=== PATIENT | male | born 1965 | race African-American/Black ===

== ENCOUNTER → 2016-07-30 | Outpatient (CLI) | payer BC ==
[~2016-07-30] MED LIST: ALPR0.2550 PO; AMLO10TA82; AMLO10TA82 PO; AMLODIPINE; ASPI81TA16 PO; ATEN25TA PO; CYCL10TA9 PO; ENAL20TA PO; ENALAPRIL; ESCI20TA2 PO; ESCI20TA38 PO; ESCT10T PO; FIO; FIORINAL PO; HCT25T; HCT25T PO; HCTZ; HYDR-3812 PO; HYDR-757 PO; MULT-974 PO; NAPR500T PO; OMEP20CA6 PO; PRAV10TA23 PO; PRAV20TA3 PO; PRD20T PO; RANI-10 PO; RANI-515 PO; SUMA50TA2 PO; TRAM-21 PO; TRAZ150T42 PO; VALS40TA8 PO
--- OUTSIDE RECORDS SUMMARY | 2016-07-30 08:16 | XMS REPORT | Continuity of Care Document ---
Author Author [facility] Organization [facility] Address Unknown Phone Unavailable Care Team Providers Care Lens Mold Setter Name Role Phone PCP Unavailable Source Comments Some departments are not documenting in the electronic medical record. If you do not see the information that you expected, contact Release of Information in the Health Information Management department at [phone] for further assistance in locating additional records.[facility] Active Allergies and Adverse Reactions Not on File Current Medications Not on file Active Problems Not on file Social History Tobacco Use Types Packs/Day Years Used Date Never Assessed Plan of Care Health Maintenance Due Date Last Done Comments Physical (Comprehensive) 12/26/1971 Exam Pertussis Vaccine 12/26/1975 Tetanus Vaccine 1981 Colorectal Cancer 2014 Screening Influenza Vaccine 03/25/2016 Results from Last 3 Months Not on file
[2016-07-30 08:36] LABS: MEAN PLATELET VOLUME 10.8 FL (7.4-10.4); RED BLOOD COUNT 4.93 10^6/uL (4.35-5.85); RED CELL DISTRIBUTION WIDTH 14.9 % (10.0-14.5); WHITE BLOOD COUNT 4.1 10^3/uL (4.3-11.0)
[2016-07-30 09:01] LABS: ALANINE AMINOTRANSFERASE 42 U/L (0-55); ANION GAP 10 MMOL/L (5-14); ASPARTATE AMINO TRANSFERASE 30 U/L (5-34); BILIRUBIN,TOTAL 0.4 MG/DL (0.1-1.0); BLOOD UREA NITROGEN 15 MG/DL (7-18); BUN/CREATININE RATIO 12; CALCIUM 8.8 MG/DL (8.5-10.1); CARBON DIOXIDE 25 MMOL/L (21-32); CHLORIDE 102 MMOL/L (98-107); CHOLESTEROL 180 MG/DL (< 200); CREATININE SERUM 1.29 MG/DL (0.60-1.30); DIRECT LDL 109 MG/DL (1-129); GFR ESTIMATED > 60; GLUCOSE 93 MG/DL (70-105); POTASSIUM 3.3 MMOL/L (3.6-5.0); SODIUM 137 MMOL/L (135-145); TRIGLYCERIDES 142 MG/DL (<150); VLDL CHOLESTEROL 28 MG/DL (5-40)
[2016-07-30 09:20] LABS: THYROID STIMULATING HORMONE 4.01 UIU/ML (0.35-4.94)
== END ==
LOC: LAB 08:12
PROVIDERS: ATTEND Nurse Practitioner Family
DX: R53.83 Other fatigue (principal); E78.5 Hyperlipidemia, unspecified; E29.1 Testicular hypofunction
CPT/HCPCS: 36415; 80053; 80061; 84403; 84443; 85027

== ENCOUNTER → 2016-12-30 | Outpatient (CLI) | payer BC ==
--- NOTE | 2016-12-30 18:59 | Diagnostic Imaging Report ---
EXAMINATION: Scrotal ultrasound. INDICATION: Left scrotal lump. FINDINGS: The right testicle is 3.5 x 1.8 x 2.3 cm. The left testicle is 2.7 x 1.6 x 2.3 cm. The testicles are fairly homogeneous with no focal lesion. Arterial and venous waveforms are demonstrated in both testicles. The right epididymis demonstrates a simple appearing 6 mm cyst. No solid mass in the scrotum is seen. No fluid collection, hydrocele or malignancy is identified. IMPRESSION: No significant abnormality. Dictated by: Dictated on workstation # [id number]
== END ==
LOC: RAD 14:44
DX: N45.1 Epididymitis (principal)
CPT/HCPCS: 76870

== ENCOUNTER → 2017-03-23 | Outpatient (CLI) | payer BC ==
--- NOTE | 2017-03-23 15:33 | Diagnostic Imaging Report ---
INDICATION: Testicular swelling since January. TECHNIQUE: Grayscale imaging of the scrotum was performed. Color Doppler velocity and spectral waveform analysis of the scrotal vessels was performed. FINDINGS: Both testes measure approximately 2.5 x 3.5 cm. They are homogeneous in appearance. There is a 6 mm cyst in the head of the epididymis on the right. No other mass is seen. There is a moderate sized hydrocele on the left. There is normal color Doppler flow and velocities with no evidence of hyperemia or torsion. IMPRESSION: There is a small simple cyst in the head of the epididymis on the left. There is a hydrocele on the left. The exam is similar to the prior study from 12/30/2016. Dictated by: Dictated on workstation # [id number]
== END ==
LOC: RAD 12:58
PROVIDERS: ATTEND Nurse Practitioner Family
DX: N50.3 Cyst of epididymis (principal); N43.3 Hydrocele, unspecified
CPT/HCPCS: 76870

== ENCOUNTER → 2017-05-03 | Outpatient (CLI) | payer BC ==
[~2017-05-03] VITALS: Ht 160 cm; Wt 97.5 kg
[~2017-05-03] MED LIST changes: +CATHETER FLUSH 10 ML SYR IV PRN; +REGADENOSON 0.4 MG/5 ML SYR (LEXISCAN) IV ONE
[2017-05-03 09:43] VITALS: BP 142/87
[2017-05-03 09:47] VITALS: BP 147/88
[2017-05-03 09:48] VITALS: BP 151/90
--- NOTE | 2017-05-04 08:03 | STRESS TEST ---
DATE OF SERVICE: 05/03/2017 PROCEDURE: Resting and post regadenoson technetium-99m Tetrofosmin SPECT CT imaging. ORDERING PHYSICIAN: Dr. Canales. PRIMARY PHYSICIAN: Dr. Tobin. CLINICAL DIAGNOSES: Fatigue, abnormal electrocardiogram, hyperlipidemia, hypertension, left ventricular hypertrophy. DESCRIPTION: Baseline images were carried out after injection of 10.33 mCi technetium-99m of Tetrofosmin. This was followed by 0.4 mg regadenoson and 29 mCi technetium-99m Tetrofosmin for stress imaging. The electrocardiogram showed sinus rhythm at baseline. There was nonspecific ST and T-wave abnormality at baseline. The electrocardiogram did not change significantly with the regadenoson infusion. The patient had some stomach discomfort following regadenoson infusion, which resolved in a few minutes. Overall, he tolerated the procedure well. Review of images at rest and following stress does not indicate any significant perfusion defects consistent with significant myocardial ischemia or infarction. Gated images show normal global left ventricular systolic function with normal regional wall motion. Left ventricular ejection fraction is calculated to be 72%. Left ventricular end diastolic volume is 60 mL. TID is absent (0.99). CONCLUSIONS: 1. No evidence of any significant myocardial ischemia or infarction on this study. 2. Normal regional wall motion. 3. Normal global left ventricular systolic function with a calculated ejection fraction of 72%. Job ID: [id number] DocumentID: [id number] Dictated Date: 05/03/2017 16:50:41 Corporate Development Intern Date: 05/04/2017 00:58:57 Dictated By: BIANCA CANALES MD, MA, FACP, FACC,
== END ==
LOC: CARD 08:16
PROVIDERS: ATTEND Internal Medicine Cardiovascular Disease
DX: E78.4 Other hyperlipidemia (principal); R53.83 Other fatigue; I11.0 Hypertensive heart disease with heart failure; I51.7 Cardiomegaly; R94.31 Abnormal electrocardiogram [ECG] [EKG]
CPT/HCPCS: 78452; 93017

== ENCOUNTER → 2017-05-16 | Outpatient (CLI) | payer BC ==
[~2017-05-16] MED LIST changes: -CATHETER FLUSH 10 ML SYR IV PRN; -REGADENOSON 0.4 MG/5 ML SYR (LEXISCAN) IV ONE
[2017-05-16 10:08] LABS: BASOPHILS % (AUTO) 1 % (0-10); EOSINOPHILS # (AUTO) 0.3 10^3/uL (0.0-0.3); EOSINOPHILS % (AUTO) 6 % (0-10); LYMPHOCYTES # (AUTO) 1.7 X 10^3 (1.0-4.0); LYMPHOCYTES % (AUTO) 40 % (12-44); MEAN CORPUSCULAR HEMOGLOBIN 25 PG (25-34); MEAN CORPUSCULAR HGB CONC 33 G/DL (32-36); MEAN CORPUSCULAR VOLUME 76 FL (80-99); MEAN PLATELET VOLUME 10.6 FL (7.4-10.4); MONOCYTES # (AUTO) 0.4 X 10^3 (0.0-1.0); MONOCYTES % (AUTO) 9 % (0-12); NEUTROPHILS % (AUTO) 45 % (42-75); PLATELET COUNT 210 10^3/uL (130-400); RED BLOOD COUNT 4.96 10^6/uL (4.35-5.85); RED CELL DISTRIBUTION WIDTH 14.9 % (10.0-14.5); WHITE BLOOD COUNT 4.4 10^3/uL (4.3-11.0)
[2017-05-16 10:32] LABS: ALANINE AMINOTRANSFERASE 24 U/L (0-55); ANION GAP 5 MMOL/L (5-14); ASPARTATE AMINO TRANSFERASE 28 U/L (5-34); BILIRUBIN,TOTAL 0.5 MG/DL (0.1-1.0); BLOOD UREA NITROGEN 11 MG/DL (7-18); BUN/CREATININE RATIO 9; CALCIUM 8.6 MG/DL (8.5-10.1); CARBON DIOXIDE 27 MMOL/L (21-32); CHLORIDE 106 MMOL/L (98-107); CHOLESTEROL 165 MG/DL (< 200); CREATININE SERUM 1.19 MG/DL (0.60-1.30); DIRECT LDL 99 MG/DL (1-129); GFR ESTIMATED > 60; GLUCOSE 83 MG/DL (70-105); MAGNESIUM 1.8 MG/DL (1.8-2.4); POTASSIUM 3.7 MMOL/L (3.6-5.0); SODIUM 138 MMOL/L (135-145); TOTAL PROTEIN 7.4 GM/DL (6.4-8.2); TRIGLYCERIDES 111 MG/DL (<150); VLDL CHOLESTEROL 22 MG/DL (5-40)
[2017-05-16 10:50] LABS: ERYTHROCYTE SEDIMENTATION RATE 8 MM/HR (0-30)
[2017-05-16 10:51] LABS: THYROID STIMULATING HORMONE 1.34 UIU/ML (0.35-4.94)
== END ==
LOC: LAB 09:41
PROVIDERS: ATTEND Internal Medicine Cardiovascular Disease
DX: R53.83 Other fatigue (principal); E78.4 Other hyperlipidemia; R94.31 Abnormal electrocardiogram [ECG] [EKG]; I11.9 Hypertensive heart disease without heart failure
CPT/HCPCS: 36415; 80053; 80061; 83735; 84443; 85025; 85652

== ENCOUNTER → 2017-05-17 | Outpatient (CLI) | payer BC | LOC: CARD 11:55 | PROVIDERS: ATTEND Internal Medicine Cardiovascular Disease | DX: E78.4 Other hyperlipidemia (principal); I11.0 Hypertensive heart disease with heart failure; I51.7 Cardiomegaly; R53.83 Other fatigue; R94.31 Abnormal electrocardiogram [ECG] [EKG] | CPT/HCPCS: 93306 ==

== ENCOUNTER 2017-11-29 08:40 | Day surgery (SDC) | payer BC, OTHER ==
[2017-11-29] VITALS (10 sets, daily range): BP systolic 117–166; BP diastolic 75–89
[~2017-11-29] VITALS: Ht 160 cm; Wt 83.9 kg
[~2017-11-29 08:40] MED LIST changes: +ACHD5005 PO; -HYDR-3812 PO; +NAPR-1071 PO; -NAPR500T PO
--- OUTSIDE RECORDS SUMMARY | 2017-11-29 08:45 | XMS REPORT | Continuity of Care Document ---
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 MALIGNANT NE 11/23/2017 RICKEY OCAMPO TOLL TESTBOARD WORKER Ot E29.1 TESTICULAR HYPOFUNCTION 11/23/2017 OCAMPO, ASHDEN N TOLL TESTBOARD WORKER Ot E78.5 HYPERLIPIDEMIA, UNSPECIFIED 11/23/2017 RICKEY OCAMPO TOLL TESTBOARD WORKER Ot R53.83 OTHER FATIGUE 11/23/2017 OSIRIS SOTOMAYOR, LAURIE Maki Ot N45.1 EPIDIDYMITIS 11/23/2017 ABE PALUMBOSARA Maki TOLL TESTBOARD WORKER Ot N43.3 HYDROCELE, UNSPECIFIED 11/23/2017 TERESA PALUMBO Glynn TOLL TESTBOARD WORKER Ot N50.3 CYST OF EPIDIDYMIS 11/23/2017 DEX SOTOMAYOR FACC, ALI FACP CCDS Ot E78.4 OTHER HYPERLIPIDEMIA 11/23/2017 DEX ORNELASC, ALI FACP CCDS Ot I11.0 HYPERTENSIVE HEART DISEASE WITH HEART FA 11/23/2017 DEX SOTOMAYOR FACC, ALI FACP CCDS Ot I51.7 CARDIOMEGALY 11/23/2017 DEX SOTOMAYOR FACC, ALI FACP CCDS Ot R53.83 OTHER FATIGUE 11/23/2017 DEX ORNELASC, ALI FACP CCDS Ot R94.31 ABNORMAL ELECTROCARDIOGRAM [ECG] [EKG] 11/23/2017 DEX SOTOMAYOR FACC, ALI FACP CCDS Ot E78.4 OTHER HYPERLIPIDEMIA 11/23/2017 DEX SOTOMAYOR FACC, ALI FACP CCDS Ot I11.0 HYPERTENSIVE HEART DISEASE WITH HEART FA 11/23/2017 DEX SOTOMAYOR FACC, ALI FACP CCDS Ot I51.7 CARDIOMEGALY 11/23/2017 DEX SOTOMAYOR FACC, ALI FACP CCDS Ot R53.83 OTHER FATIGUE 11/23/2017 DEX ORNELASC, ALI FACP CCDS Ot R94.31 ABNORMAL ELECTROCARDIOGRAM [ECG] [EKG] 11/23/2017 DEX SOTOMAYOR FACC, ALI FACP CCDS Ot E78.4 OTHER HYPERLIPIDEMIA 11/23/2017 DEX SOTOMAYOR FACC, ALI FACP CCDS Ot I11.9 HYPERTENSIVE HEART DISEASE WITHOUT HEART 11/23/2017 DEX STOOMAYOR FACC, ALI FACP CCDS Ot R53.83 OTHER FATIGUE 11/23/2017 DEX SOTOMAYOR FACC, ALI FACP CCDS Ot R94.31 ABNORMAL ELECTROCARDIOGRAM [ECG] [EKG] 11/23/2017 DEX SOTOMAYOR FACC, ALI FACP CCDS Ot 272.4 HYPERLIPIDEMIA NEC/NOS 11/23/2017 DEX ORNELASC, ALI FACP CCDS Ot 401.9 HYPERTENSION NOS 11/23/2017 DEX ORNELASC, ALI FACP CCDS Ot 429.3 CARDIOMEGALY 11/23/2017 DEX SOTOMAYOR FACNico, ALI FACP CCDS Ot 530.81 ESOPHAGEAL REFLUX 11/23/2017 DEX SOTOMAYOR FACC, ALI FACP CCDS Ot 780.4 DIZZINESS AND GIDDINESS 11/23/2017 DEX SOTOMAYOR FACNico, ALI FACP CCDS Ot 780.79 OTH MALAISE FATIGUE 11/23/2017 DEX SOTOMAYOR FACNico, ALI FACP CCDS Ot 786.05 SHORTNESS OF BREATH 11/23/2017 DEX SOTOMAYOR FACNico, ALI FACP CCDS Ot 786.50 CHEST PAIN NOS 11/23/2017 LAURIE NEWELL MD Ot 786.50 CHEST PAIN NOS 11/23/2017 LAURIE NEWELL MD Ot 401.1 BENIGN HYPERTENSION 11/23/2017 LAURIE NEWELL MD Ot 593.2 CYST OF KIDNEY, ACQUIRED 11/23/2017 LAURIE NEWELL MD Ot 780.4 DIZZINESS AND GIDDINESS 11/23/2017 LAURIE NEWELL MD Ot 784.0 HEADACHE 11/23/2017 VALENTIN GOTTI MD Ot Z01.818 ENCOUNTER FOR OTHER PREPROCEDURAL EXAMIN 11/23/2017 VALENTIN GOTTI MD Ot Z12.11 ENCOUNTER FOR SCREENING FOR MALIGNANT NE 11/23/2017 RICKEY OCAMPO TOLL TESTBOARD WORKER Ot E29.1 TESTICULAR HYPOFUNCTION 11/23/2017 RICKEY OCAMPO TOLL TESTBOARD WORKER Ot E78.5 HYPERLIPIDEMIA, UNSPECIFIED 11/23/2017 RICKEY OCAMPO TOLL TESTBOARD WORKER Ot R53.83 OTHER FATIGUE 11/23/2017 LAURIE NEWELL MD Ot N45.1 EPIDIDYMITIS 11/23/2017 TERESA PALUMBO TOLL TESTBOARD WORKER Ot N43.3 HYDROCELE, UNSPECIFIED 11/23/2017 TERESA PALUMBO TOLL TESTBOARD WORKER Ot N50.3 CYST OF EPIDIDYMIS 11/23/2017 DEX SOTOMAYOR FACC, BIANCA FACP CCDS Ot E78.4 OTHER HYPERLIPIDEMIA 11/23/2017 DEX SOTOMAYOR FACC, ALI FACP CCDS Ot I11.0 HYPERTENSIVE HEART DISEASE WITH HEART FA 11/23/2017 DEX SOTOMAYOR FACC, ALI FACP CCDS Ot I51.7 CARDIOMEGALY 11/23/2017 DEX SOTOMAYOR FACC, ALI FACP CCDS Ot R53.83 OTHER FATIGUE 11/23/2017 DEX MD FACC, ALI FACP CCDS Ot R94.31 ABNORMAL ELECTROCARDIOGRAM [ECG] [EKG] 11/23/2017 DEX MD FACC, ALI FACP CCDS Ot E78.4 OTHER HYPERLIPIDEMIA 11/23/2017 DEX MD FACC, ALI FACP CCDS Ot I11.0 HYPERTENSIVE HEART DISEASE WITH HEART FA 11/23/2017 DEX MD FACC, ALI FACP CCDS Ot I51.7 CARDIOMEGALY 11/23/2017 EDX MD FACC, ALI FACP CCDS Ot R53.83 OTHER FATIGUE 11/23/2017 DEX MD FACC, ALI FACP CCDS Ot R94.31 ABNORMAL ELECTROCARDIOGRAM [ECG] [EKG] 11/23/2017 DEX MD FACC, ALI FACP CCDS Ot E78.4 OTHER HYPERLIPIDEMIA 11/23/2017 DEX MD FACC, ALI FACP CCDS Ot I11.9 HYPERTENSIVE HEART DISEASE WITHOUT HEART 11/23/[address] [facility], ALI FACP CCDS Ot R53.83 OTHER FATIGUE 11/23/2017 DEX MD FACC, ALI FACP CCDS Ot R94.31 ABNORMAL ELECTROCARDIOGRAM [ECG] [EKG] Procedures There is no data. Results Test Result Range Automated blood complete blood count (hemogram) panel - 07/30/16 08:25 Blood leukocytes automated count (number/volume) 4.1 10*3/uL 4.3-11.0 Blood erythrocytes automated count (number/volume) 4.93 10*6/uL 4.35-5.85 Venous blood hemoglobin measurement (mass/volume) 12.3 g/dL 13.3-17.7 Blood hematocrit (volume fraction) 38 % 40-54 Automated erythrocyte mean corpuscular volume 76 [foz_us] 80-99 Automated erythrocyte mean corpuscular hemoglobin (mass per erythrocyte) 25 pg 25-34 Automated erythrocyte mean corpuscular hemoglobin concentration measurement ( mass/volume) 33 g/dL 32-36 Automated erythrocyte distribution width ratio 14.9 % 10.0-14.5 Automated blood platelet count (count/volume) 227 10*3/uL 130-400 Automated blood platelet mean volume measurement 10.8 [foz_us] 7.4-10.4 Comprehensive metabolic panel - 07/30/16 08:25 Serum or plasma sodium measurement (moles/volume) 137 mmol/L 135-145 Serum or plasma potassium measurement (moles/volume) 3.3 mmol/L 3.6-5.0 Serum or plasma chloride measurement (moles/volume) 102 mmol/L 98-107 Carbon dioxide 25 mmol/L 21-32 Serum or plasma anion gap determination (moles/volume) 10 mmol/L 5-14 Serum or plasma urea nitrogen measurement (mass/volume) 15 mg/dL 7-18 Serum or plasma creatinine measurement (mass/volume) 1.29 mg/dL 0.60-1.30 Serum or plasma urea nitrogen/creatinine mass ratio 12 NRG Serum or plasma creatinine measurement with calculation of estimated glomerular filtration rate > NRG Serum or plasma glucose measurement (mass/volume) 93 mg/dL 70-105 Serum or plasma calcium measurement (mass/volume) 8.8 mg/dL 8.5-10.1 Serum or plasma total bilirubin measurement (mass/volume) 0.4 mg/dL 0.1-1.0 Serum or plasma alkaline phosphatase measurement (enzymatic activity/volume) 61 U/L 40-136 Serum or plasma aspartate aminotransferase measurement (enzymatic activity/ volume) 30 U/L 5-34 Serum or plasma alanine aminotransferase measurement (enzymatic activity/volume ) 42 U/L 0-55 Serum or plasma protein measurement (mass/volume) 7.0 g/dL 6.4-8.2 Serum or plasma albumin measurement (mass/volume) 4.0 g/dL 3.2-4.5 Lipid 1996 panel - 07/30/16 08:25 Serum or plasma triglyceride measurement (mass/volume) 142 mg/dL <150 Serum or plasma cholesterol measurement (mass/volume) 180 mg/dL < 200 Serum or plasma cholesterol in HDL measurement (mass/volume) 39 mg/ dL 40-60 Cholesterol in LDL [mass/volume] in serum or plasma by direct assay 109 mg/dL 1-129 Serum or plasma cholesterol in VLDL measurement (mass/volume) 28 mg/ dL 5-40 THYROID STIMULATING HORMONE - 07/30/16 08:25 THYROID STIMULATING HORMONE 4.01 u[iU]/mL 0.35-4.94 Serum or plasma testosterone measurement (mass/volume) - 07/30/16 08:25 Testosterone [mass or moles/volume] in serum or plasma 266 % 241-827 Encounters ACCT No. Visit Date/Time Discharge Status Pt. Type Provider Facility Loc./Unit Complaint [id number] 05/17/2017 11:55:00 05/17/2017 23:59:59 CLS Outpatient DEX SOTOMAYOR FACC, BIANCA FOSTER CCDS [facility] CARD R53.83, I51.7 , E78.4, E10, R94.31 [id number] 05/16/2017 09:41:00 05/16/2017 23:59:59 CLS Outpatient DEX SOTOMAYOR FACC, BIANCA FOSTER CCDS [facility] LAB R53.83 I51.7 E78.4 I10 R94.31 [id number] 05/03/2017 08:16:00 05/03/2017 23:59:59 CLS Outpatient BIANCA KOWALSKI MD, FACC, FACP CCDS [facility] CARD FATIGUE [id number] 03/23/2017 12:58:00 03/23/2017 23:59:59 CLS Outpatient TERESA PALUMBO TOLL TESTBOARD WORKER [facility] RAD ORCHITIS AND EPIDIDYMITIS N45.3 [id number] 12/30/2016 14:44:00 12/30/2016 23:59:59 CLS Outpatient LAURIE NEWELL MD [facility] RAD EPIDIDYMITIS N45.1 [id number] 07/30/2016 08:12:00 07/30/2016 23:59:59 CLS Outpatient RICKEY OCAMPO TOLL TESTBOARD WORKER [facility] LAB FATIGUE [id number] 06/10/2016 10:08:00 06/10/2016 10:22:00 DIS Outpatient MATTEO LOYOLA DO [facility] SLEEP ALPHONSE [id number] 07/11/2015 08:19:00 07/11/2015 11:00:00 DIS Outpatient VALENTIN GOTTI MD [facility] SDC SCREENING [id number] 07/09/2015 05:39:00 07/09/2015 23:59:59 CLS Outpatient VALENTIN GOTTI MD [facility] PREOP SCREENING [id number] 06/07/2015 19:07:00 06/07/2015 20:21:00 DIS Emergency KAY AMES APRN [facility] ER BACK PAIN [id number] 05/26/2015 11:19:00 05/26/2015 15:30:00 DIS Emergency PARAG JACKSON [facility] ER BACK/RIGHT LEG PAIN [id number] 02/17/2015 12:14:00 02/17/2015 23:59:59 CLS Outpatient LAURIE NEWELL MD [facility] RAD HEADACHE,DIZZINESS [id number] 11/19/2013 23:23:00 11/20/2013 03:15:00 DIS Emergency FREEDOM GALVEZ MD [facility] ER LEFT SIDE PAIN [id number] 11/05/2013 08:42:00 11/05/2013 23:59:59 CLS Outpatient LAURIE NEWELL MD [facility] RAD HTN [id number] 06/04/2013 10:21:00 06/04/2013 23:59:59 CLS Outpatient LAURIE NEWELL MD [facility] RAD TIETZE DISEASE [id number] 05/15/2013 07:06:00 05/15/2013 13:30:00 DIS Outpatient DEX SOTOMAYOR FACC, ALI FACP CCDS [facility] CATH CP,ANGINA,SOB ,FATIGUE,DIZZINESS [id number] 05/11/2013 12:50:00 05/11/2013 23:59:59 CLS Outpatient DEX SOTOMAYOR FACC, ALI FACP CCDS [facility] CARD CP,SOB, FATIGUE [id number] 11/29/2017 11:00:00 PEN Preadmit DEX SOTOMAYOR FACNico, ALI FACP CCDS [facility] CATH SOB [id number] 09/09/2014 23:11:00 Document Registration [id number] 08/24/2011 09:31:00 Document Registration [id number] 06/26/2010 05:40:00 Document Registration [id number] 06/25/2010 09:05:00 Document Registration [id number] 06/08/2010 15:12:00 Document Registration [id number] 06/05/2010 15:22:00 Document Registration [id number] 06/01/2010 21:04:00 Document Registration [id number] 12/02/2009 11:00:00 Document Registration [email or web address] 02/17/2015 12:15:06 ACT Document Registration
[2017-11-29] MEDS ORDERED: NS IV 1000 ML 1,000 ML IV SCH ×2 (09:45→13:47)
[2017-11-29 09:52] LABS: HEMOGLOBIN 12.2 G/DL (13.3-17.7); MEAN PLATELET VOLUME 10.8 FL (7.4-10.4); RED BLOOD COUNT 4.91 10^6/uL (4.35-5.85); RED CELL DISTRIBUTION WIDTH 15.7 % (10.0-14.5); WHITE BLOOD COUNT 4.7 10^3/uL (4.3-11.0)
[2017-11-29] MEDS ORDERED: ATEN25TA PO (10:07)
[2017-11-29] MEDS ORDERED: RANI150T90 PO (10:07)
[2017-11-29] MEDS ORDERED: ESCI20TA45 PO (10:07)
[2017-11-29] MEDS ORDERED: MELO15TA39 PO (10:07)
[2017-11-29] MEDS ORDERED: ASPI-983 PO (10:07)
[2017-11-29] MEDS ORDERED: HYDR25TA4 PO (10:07)
[2017-11-29] MEDS ORDERED: MULT1TAB69 PO (10:07)
[2017-11-29 10:10] LABS: PROTHROMBIN TIME PATIENT 13.3 SEC (12.2-14.7)
[2017-11-29 10:15] LABS: ALANINE AMINOTRANSFERASE 31 U/L (0-55); ALBUMIN 4.3 GM/DL (3.2-4.5); ALKALINE PHOSPHATASE 69 U/L (40-136); BILIRUBIN,TOTAL 0.4 MG/DL (0.1-1.0); BUN/CREATININE RATIO 12; CALCIUM 9.5 MG/DL (8.5-10.1); CARBON DIOXIDE 29 MMOL/L (21-32); CHLORIDE 106 MMOL/L (98-107); CHOLESTEROL 156 MG/DL (< 200); GFR ESTIMATED > 60; GLUCOSE 97 MG/DL (70-105); HDL CHOLESTEROL 43 MG/DL (40-60); POTASSIUM 3.9 MMOL/L (3.6-5.0); SODIUM 141 MMOL/L (135-145); TOTAL PROTEIN 7.6 GM/DL (6.4-8.2); TRIGLYCERIDES 117 MG/DL (<150); VLDL CHOLESTEROL 23 MG/DL (5-40)
[2017-11-29] MEDS ORDERED: HEParin 1000 UNIT/ML (10ML VIAL) FOR BOLUS ONE (10:24)
[2017-11-29] MEDS ORDERED: diphenhydrAMINE 50 MG/ML INJ (BENADRYL) ONE (11:48)
[2017-11-29] MEDS ORDERED: MIDAZOLAM 5 MG/5 ML (VERSED) VIAL ONE (11:48)
[2017-11-29] MEDS ORDERED: fentaNYL INJECTION 100 MCG/2 ML AMP ONE (11:48)
[2017-11-29] MEDS ORDERED: LIDOCAINE 1% INJ 20 ML 20 ML VIAL ONE (12:20)
--- NOTE | 2017-11-29 12:26 | Cardiac Procedure Note-CS/ASA ---
Pre-Procedure Note Pre-Op Procedure Note H&P Reviewed The H&P was reviewed, patient examined and no changes noted. Date H&P Reviewed: November 29, 2017 Time H&P Reviewed: 12:26 Conscious Sedation Pre-Proced Time Reviewed: : ASA Class: 3 Airway Mallampati Classification: ([place] appropriate class) I. II. III, IV Lungs Heart ASA score ASA 1: a normal healthy patient ASA 2: a patient with a mild systemic disease (mid diabetes, controlled hypertension, obesity ASA 3: a patient with a severe systemic disease that limits activity (angina , COPD, prior Myocardial infarction) ASA 4: a patient with an incapacitating disease that is a constant threat to life (CHF, renal failure) ASA 5: a moribund patient not expected to survive 24 hrs. (ruptured aneurysm) ASA 6: a declared brain patient whose organs are being harvested. For emergent operations, add the letter E after the classification Grade 2 Sedation Plan: Analgesia, Amnesia, Plan communicated to team members, Discussed options with patient/fam, Discussed risks with patient/fam Note The patient is an appropriate candidate to undergo the planned procedure, sedation, and anesthesia. The patient immediately re-assessed prior to indication. BIANCA KOWALSKI MD FACP FAC CCDS November 29, 2017 12:26
--- NOTE | 2017-11-29 13:50 | Discharge Inst-Post CATH ---
Discharge Inst-CATH Post Cardiac Cath D/C Inst Follow Up/Plan F/u with Dr Canales in 2 weeks CARDIAC CATH DISCHARGE INSTRUCTIONS *Hold Metformin for 48 hours post heart cath. ACTIVITY * Go Home directly and rest. * Limit activity of the leg (or wrist if it was used) for 7 days including aerobics, swimming, jogging, bicycling, etc. * Restrict stair-climbing for 7 days if possible, if not, climb up with your non -cath leg, then bring together on the same step. * Avoid lifting, pushing, pulling or excessive movement of the affected extremity for 7 days. * Customary sexual activity may be resumed after 2 days-use caution not to use a position that strains or causes pain to the affected extremity. * No driving for 24 hours. * NO SMOKING. * Avoid straining for bowel movements for 7 days. * Gentle walking on level ground is allowed. * Returning to work will depend on the type of procedure and the results. Your doctor will discuss this with you. CALL YOUR DOCTOR FOR ANY OF THE FOLLOWING: *If bleeding from the puncture site occurs- Apply gentle pressure to site with clean cloth and call your doctor or EMS. * If a knot or lump forms under the skin, increases in size, or causes pain. * If bruising appears to be worsening or moving further down your leg instead of disappearing. * Temperature above 101 F. CARE OF YOUR GROIN INCISION; * Bruising or purple discoloration of the skin near the puncture site is common. * You may shower only, no bathtub bathing for 5 days. Be careful to avoid slipping as your leg may feel stiff. * If a closure device was used on your femoral artery, please see the attached guide regarding care of the device and your leg. * REMOVE the dressing from your groin the next day after your procedure in the shower. CARE OF YOUR WRIST INCISION; * Bruising or purple discoloration of the skin near the puncture site is common. * You may shower. * DO NOT submerge wrist. * Remove dressing in 24 hours. B[facility]CA [facility]NALES [facility] November 29, 2017 13:50
--- NOTE | 2017-11-29 13:50 | Discharge Inst-Cardiology ---
Discharge Inst-Cardiac Discharge Medications Continued Medications: Aspirin (Aspirin EC) 81 Mg Tablet.dr 81 MG PO DAILY, TAB Atenolol (Atenolol) 25 Mg Tablet 25 MG PO DAILY, TAB Escitalopram Oxalate (Escitalopram Oxalate) 20 Mg Tablet 20 MG PO HS, TAB Hydrochlorothiazide (Hydrochlorothiazide) 25 Mg Tablet 25 MG PO HS, TAB Meloxicam (Meloxicam) 15 Mg Tablet 15 MG PO DAILY, TAB Multivitamin (Multivitamins) 1 Each Tablet 1 TAB PO DAILY, TAB Pravastatin Sodium (Pravastatin Sodium) 20 Mg Tablet 20 MG PO HS, TAB Ranitidine HCl (Acid Marine [employer]writer (RANITIDINE)) 150 Mg Tablet 150 MG PO BID, TAB Sumatriptan Succinate (Sumatriptan Succinate) 50 Mg Tablet 50 MG PO UD PRN for MIGRAINE, TAB Valsartan (Valsartan) 40 Mg Tablet 40 MG PO DAILY, TAB BIANCA KOWALSKI MD FACP FAC CCDS November 29, 2017 13:50
[2017-11-29] MEDS ORDERED: PATIENT MAY USE OWN MEDS, ALL PO SCH (14:00)
--- NOTE | 2017-11-29 19:34 | CARDIAC CATHETERIZATION ---
DATE OF SERVICE: 11/29/2017 CARDIAC CATHETERIZATION REPORT The patient is a 51-year-old gentleman, who is known to have multiple coronary artery disease risk factors and who has been experiencing symptoms suggestive of new onset of exertional angina. Cardiac catheterization was carried out today after having obtained informed consent. DESCRIPTION OF PROCEDURE: He was brought to the cardiac catheterization laboratory in a fasting state. Right groin was prepared and draped in usual sterile fashion. Lidocaine 1% with local anesthesia. Modified Seldinger technique was used to advance a 5-Cymro sheath into the right femoral artery, 5-Cymro JL4 catheter for right coronary angiography and 5-Cymro JR4 catheter for right coronary angiography, 5-Cymro pigtail catheter for left heart catheterization, left ventricular angiography. Angiography of the right femoral artery was carried out through the sheath. Mynx was used to achieve hemostasis following sheath removal. He tolerated the procedure well. HEMODYNAMICS: Left ventricular end-diastolic pressure following coronary angiography was 24 mmHg. There was no significant pressure gradient on pullback across the aortic valve. The ascending aortic pressure was 155/93 with a mean 108 mmHg. LEFT VENTRICULAR ANGIOGRAPHY: Left ventricular angiography was carried out in the right anterior oblique projection. Global left ventricular systolic function normal. No regional wall motion abnormalities are seen. Left ventricular ejection fraction approximately 65%. There does not appear to be significant mitral regurgitation. CORONARY ANGIOGRAPHY: Left main coronary artery, left anterior descending artery, left circumflex artery, right coronary artery are all free of any angiographically significant disease. The right coronary artery is dominant. CONCLUSIONS: 1. No angiographically significant coronary artery disease. 2. Normal global left ventricular systolic function, ejection fraction 65%. 3. Elevated left ventricular end-diastolic pressure. 4. No significant mitral regurgitation. DISCUSSION AND RECOMMENDATIONS: Based on results of the study, it appears appropriate to continue a conservative approach and focus primarily on risk factor modification. This has been discussed with him and outpatient followup is advised. Job ID: [id number] DocumentID: [id number] Dictated Date: 11/29/2017 12:52:37 Pace Analyst Date: 11/29/2017 19:33:48 Dictated By: BIANCA KOWALSKI MD, MA, FACP, FACC,
== END 2017-11-29 16:10 | disposition home or self-care (01) ==
LOC: CATH 08:40 → SURG 13:07 → CATH 16:10
PROVIDERS: ATTEND Internal Medicine Cardiovascular Disease
DX: R07.89 Other chest pain (principal); R06.00 Dyspnea, unspecified; I10 Essential (primary) hypertension; E78.5 Hyperlipidemia, unspecified; G47.33 Obstructive sleep apnea (adult) (pediatric); D64.9 Anemia, unspecified; E66.9 Obesity, unspecified; Z68.32 Body mass index [BMI] 32.0-32.9, adult; Z79.82 Long term (current) use of aspirin; Z79.899 Other long term (current) drug therapy
CPT/HCPCS: 36415; 80053; 80061; 85027; 85610; 85730; 87081; 93005; 93458

== ENCOUNTER → 2020-05-01 | Outpatient (CLI) | payer BC, OTHER ==
[~2020-05-01] MED LIST changes: +ASPI-1238 PO; +ESCI20TA45 PO; +HYDR-4226 PO; -HYDR-757 PO; +HYDR25TA4 PO; +MELO15TA39 PO; +MULT-567 PO; -RANI-515 PO; +RANI-609 PO; +RANI150T90 PO; -VALS40TA8 PO; +VALS40TA9 PO
--- NOTE | 2020-05-01 14:59 | Diagnostic Imaging Report ---
PROCEDURE: US Renal Bilateral. TECHNIQUE: Multiple real-time grayscale images were obtained over the kidneys in various projections bilaterally. INDICATION: Chronic kidney disease, stage III. FINDINGS: Right kidney measures 10.4 x 4.9 x 6.3 cm and the left kidney measures 10.4 x 5.6 x 6.5 cm. Cortical thickness and echogenicity is normal bilaterally. No calculi or hydronephrosis are seen. There is a cystic mass in the upper pole of the left kidney measuring 6.6 x 5.5 x 5.9 cm. Bilateral ureteral jets are visualized within the bladder. IMPRESSION: Large left renal cyst. The study is otherwise unremarkable. Dictated by: Dictated on workstation # [id number]
== END ==
LOC: RAD 14:30
PROVIDERS: ATTEND Internal Medicine Nephrology
DX: I12.9 Hypertensive chronic kidney disease with stage 1 through stage 4 chronic kidney disease, or unspecified chronic kidney disease (principal); N18.30 Chronic kidney disease, stage 3 unspecified; D50.8 Other iron deficiency anemias; N52.8 Other male erectile dysfunction; N28.1 Cyst of kidney, acquired; D63.1 Anemia in chronic kidney disease
CPT/HCPCS: 76770

== ENCOUNTER → 2020-05-27 | Outpatient (CLI) | payer BC ==
[~2020-05-27] MED LIST changes: +CATHETER FLUSH 10 ML SYR IV PRN; +HOLD METFORMIN - RECEIVED CONTRAST 20 ML VIAL IV SCH; +IOHEXOL 350 MG/ML 100 ML (OMNIPAQUE 350) VIAL IV ONE; +NS 100 ML (IVPB) BAG IV ONE
--- NOTE | 2020-05-27 13:57 | Diagnostic Imaging Report ---
PROCEDURE: CT abdomen and pelvis with and without contrast. TECHNIQUE: Precontrast acquisitions were acquired through the abdomen and pelvis. Multiple contiguous axial images were obtained through the abdomen and pelvis after the administration of intravenous contrast. Auto Exposure Controls were utilized during the CT exam to meet ALARA standards for radiation dose reduction. INDICATION: Left renal mass. This study is performed for further evaluation. COMPARISON: Correlation is made with prior CT from 11/20/2013 as well as renal ultrasound from 05/01/2020. FINDINGS: The lung bases are clear. No discrete liver mass is detected. The gallbladder is surgically absent. No biliary ductal dilatation is seen. The pancreas and spleen are unremarkable. No adrenal mass is detected. Right kidney is unremarkable. There is an exophytic, circumscribed low-attenuation mass arising from the left kidney measuring 6 cm in diameter. No nodularity, enhancement, or calcification is seen and findings are consistent with a simple cyst. No other renal masses are detected. Aorta is nonaneurysmal. No central retroperitoneal or mesenteric lymphadenopathy is seen. The small and large bowel loops are normal in caliber. There is no obstruction. Appendix is unremarkable. No free fluid or fluid collection is identified. Partially filled urinary bladder is unremarkable. Prostate is unremarkable. No pelvic lymphadenopathy is seen. Bony structures are nonacute. IMPRESSION: 6 cm simple left renal cyst. The study is otherwise unremarkable. Dictated by: Dictated on workstation # [id number]
== END ==
LOC: RAD 12:23
PROVIDERS: ATTEND Internal Medicine Nephrology
DX: N28.1 Cyst of kidney, acquired (principal)
CPT/HCPCS: 74178

== ENCOUNTER → 2020-11-25 | Day surgery (SDC) | payer BC ==
[~2020-11-25] VITALS: Ht 160 cm; Wt 86.4 kg
[2020-11-25] VITALS (10 sets, daily range): BP systolic 128–150; BP diastolic 66–94
[~2020-11-25] MED LIST changes: +AMLO-251 PO; +BUSP10TA95 PO; -CATHETER FLUSH 10 ML SYR IV PRN; +ESCI20TA39 PO; -ESCI20TA45 PO; +FAMO20TA5 PO; +FERR-84 PO; +HEParin (CATH LAB) 2,000 ML IV ONE; -HOLD METFORMIN - RECEIVED CONTRAST 20 ML VIAL IV SCH; -IOHEXOL 350 MG/ML 100 ML (OMNIPAQUE 350) VIAL IV ONE; +LIDOCAINE 1% INJ 20 ML 20 ML VIAL ONE; +LOSA25TA41 PO; +MAGN250T13 PO; +MIDAZOLAM 5 MG/5 ML (VERSED) VIAL ONE; -NS 100 ML (IVPB) BAG IV ONE; +NS IV 1000 ML 1,000 ML IV SCH; +PATIENT MAY USE OWN MEDS, ALL PO SCH; +TADA20TA54 PO; +fentaNYL INJ 100 MCG/2 ML AMP ONE
[2020-11-25 08:47] LABS: HEMOGLOBIN 12.3 g/dL (13.3-17.7); MEAN PLATELET VOLUME 10.3 fL (9.0-12.2); WHITE BLOOD COUNT 4.7 10^3/uL (4.3-11.0)
[2020-11-25 09:02] LABS: INR 0.9 (0.8-1.4)
[2020-11-25 09:12] LABS: ALANINE AMINOTRANSFERASE 25 U/L (0-55); ALBUMIN 4.2 GM/DL (3.2-4.5); ALKALINE PHOSPHATASE 103 U/L (40-136); BILIRUBIN,TOTAL 0.3 MG/DL (0.1-1.0); BUN/CREATININE RATIO 10; CALCIUM 8.9 MG/DL (8.5-10.1); CARBON DIOXIDE 27 MMOL/L (21-32); CHLORIDE 106 MMOL/L (98-107); CHOLESTEROL 159 MG/DL (< 200); CREATININE SERUM 1.44 MG/DL (0.60-1.30); GFR ESTIMATED > 60; GLUCOSE 88 MG/DL (70-105); HDL CHOLESTEROL 38 MG/DL (40-60); POTASSIUM 3.8 MMOL/L (3.6-5.0); SODIUM 140 MMOL/L (135-145); TOTAL PROTEIN 7.6 GM/DL (6.4-8.2); TRIGLYCERIDES 128 MG/DL (<150); VLDL CHOLESTEROL 26 MG/DL (5-40)
--- NOTE | 2020-11-25 11:16 | Cardiac Procedure Note-CS/ASA ---
Pre-Procedure Note Pre-Op Procedure Note H&P Reviewed The H&P was reviewed, patient examined and no changes noted. Date H&P Reviewed: November 25, 2020 Time H&P Reviewed: 10:30 Conscious Sedation Pre-Proced Time 10:30 ASA Score 3 For ASA 3 and 4: Consider anesthesia and medical clearance. Also, for patients with a history of failed moderate sedation consider anesthesia. Airway Lungs Heart ASA score ASA 1: a normal healthy patient ASA 2: a patient with a mild systemic disease (mid diabetes, controlled hypertension, obesity ASA 3: a patient with a severe systemic disease that limits activity (angina, COPD, prior Myocardial infarction) ASA 4: a patient with an incapacitating disease that is a constant threat to life (CHF, renal failure) ASA 5: a moribund patient not expected to survive 24 hrs. (ruptured aneurysm) ASA 6: a declared brain- patient whose organs are being harvested. For emergent operations, add the letter E after the classification Mallampati Classification Grade 2 Sedation Plan Analgesia, Amnesia, Plan communicated to team members, Discussed options with patient/fam, Discussed risks with patient/fam The patient is an appropriate candidate to undergo the planned procedure, sedation, and anesthesia. The patient immediately re-assessed prior to indication. BIANCA KOWALSKI MD FACP FAC CCDS November 25, 2020 11:16
--- NOTE | 2020-11-25 11:19 | Discharge Inst-Post CATH ---
Discharge Inst-CATH/EP Post Cardiac Cath/EP D/C Inst Follow Up/Plan F/u with Dr Canales in 2 weeks ACTIVITY * Go Home directly and rest. * Limit activity of the leg (or wrist if it was used) for 7 days including aerobics, swimming, jogging, bicycling, etc. * Restrict stair-climbing for 7 days if possible, if not, climb up with your n on-cath leg, then bring together on the same step. * Avoid lifting, pushing, pulling or excessive movement of the affected ex tremity for 7 days. * Customary sexual activity may be resumed after 2 days-use caution not to use a position that strains or causes pain to the affected extremity. * No driving for 24 hours. * NO SMOKING. * Avoid straining for bowel movements for 7 days. * Gentle walking on level ground is allowed. * Returning to work will depend on the type of procedure and the results. Your doctor will discuss this with you. CALL YOUR DOCTOR FOR ANY OF THE FOLLOWING: *If bleeding from the puncture site occurs- Apply gentle pressure to site with clean cloth and call your doctor or EMS. * If a knot or lump forms under the skin, increases in size, or causes pain. * If bruising appears to be worsening or moving further down your leg instead of disappearing. * Temperature above 101 F. CARE OF YOUR GROIN INCISION; * Bruising or purple discoloration of the skin near the puncture site is common. * You may shower only, no bathtub bathing for 5 days. Be careful to avoid slipping as your leg may feel stiff. * If a closure device was used on your femoral artery, please see the attached guide regarding care of the device and your leg. * Leave dressing on FOR 24 hours. CARE OF YOUR WRIST INCISION; * Bruising or purple discoloration of the skin near the puncture site is common. * You may shower. * DO NOT submerge wrist. * Leave dressing on FOR 24 hours. BIANCA CANALES MD FACP FAC CCDS November 25, 2020 11:19
--- NOTE | 2020-11-25 11:19 | Discharge Inst-Cardiology ---
Discharge Inst-Cardiac Discharge Medications Continued Medications: Amlodipine Besylate (Amlodipine Besylate) 10 Mg Tablet 10 MG PO DAILY, TAB Aspirin (Aspirin EC) 81 Mg Tablet.dr 81 MG PO DAILY, TAB Buspirone HCl (Buspirone HCl) 10 Mg Tablet 10 MG PO BID, TAB Famotidine (Famotidine) 20 Mg Tablet 20 MG PO DAILY, TAB Ferrous Sulfate (Iron) 325 Mg Tablet 325 MG PO DAILY, TAB Losartan Potassium (Losartan Potassium) 25 Mg Tablet 25 MG PO DAILY, TAB Magnesium Oxide (Magnesium) 250 Mg Tablet 250 MG PO DAILY, TAB Multivitamin (Multivitamins) 1 Each Tablet 1 TAB PO DAILY, TAB Pravastatin Sodium (Pravastatin Sodium) 20 Mg Tablet 20 MG PO HS, TAB Sumatriptan Succinate (Sumatriptan Succinate) 50 Mg Tablet 50 MG PO UD PRN for MIGRAINE, TAB Tadalafil (Tadalafil) 20 Mg Tablet 20 MG PO DAILY PRN for ERECTILE DYSFUNCTION, TAB BIANCA KOWALSKI MD FACP [facility] November 25, 2020 11:19
--- NOTE | 2020-11-25 13:24 | CARDIAC CATHETERIZATION ---
DATE OF SERVICE: 11/25/2020 CARDIAC CATHETERIZATION REPORT INDICATION FOR PROCEDURE: The patient is a 54-year-old gentleman, who has coronary artery disease risk factors and who has been having severe midsternal chest pain with small amounts of exertion. This has caused him physical and emotional distress. He has felt that his heart is not doing well. Cardiac catheterization was carried out today after having obtained an informed consent. DESCRIPTION OF PROCEDURE: He was brought to the cardiac catheterization laboratory in a fasting state. Right groin was prepared and draped in the usual sterile fashion. Lidocaine 1% was used as local anesthesia. Modified Seldinger technique was used to advance a 5-Micronesian sheath in the right femoral artery. A 5-Micronesian JL4 catheter was used for left coronary angiography, 5-Micronesian JR4 catheter was used for right coronary angiography, 5-Micronesian pigtail catheter was used for left heart catheterization and left ventricular angiography. Pigtail catheter was pulled back and removed. Angiography of the right femoral artery was carried out through the sheath. Mynx was used to achieve hemostasis. HEMODYNAMICS: Left ventricular end-diastolic pressure following coronary angiography was 20 mmHg. There was no significant pressure gradient on pullback across the aortic valve. CORONARY ANGIOGRAPHY: Left main coronary artery, left circumflex artery, left anterior descending artery, right coronary artery are all angiographically normal. Right coronary artery is dominant. LEFT VENTRICULAR ANGIOGRAPHY: Left ventricular angiography was carried out in the right anterior oblique projection. Global left ventricular systolic function is normal. No regional wall motion abnormality is seen. Left ventricular ejection fraction is approximately 60% to 65%. CONCLUSIONS: 1. Angiographically normal coronary arteries. 2. Normal global left ventricular systolic function with an ejection fraction of 60% to 65%. 3. Left ventricular end-diastolic pressure is approximately 20 mmHg. DISCUSSION AND RECOMMENDATIONS: Based on results of the study, exertional chest discomfort does not appear to be of coronary origin. Continuing risk factor modification is advised. Outpatient followup is advised. Job ID: [id number] DocumentID: [id number] Dictated Date: 11/25/2020 11:25:25 Helmet Hat Puncher Date: 11/25/2020 13:23:09 Dictated By: BIANCA KOWALSKI MD, MA, FACP, FACC,
== END ==
LOC: CATH 10:00 → SDC 11:26
PROVIDERS: ATTEND Internal Medicine Cardiovascular Disease
DX: R07.9 Chest pain, unspecified (principal); E78.5 Hyperlipidemia, unspecified; G47.33 Obstructive sleep apnea (adult) (pediatric); I11.9 Hypertensive heart disease without heart failure; K21.9 Gastro-esophageal reflux disease without esophagitis; D64.9 Anemia, unspecified; E66.9 Obesity, unspecified; Z91.02 Food additives allergy status; Z88.8 Allergy status to other drugs, medicaments and biological substances; Z88.5 Allergy status to narcotic agent; Z79.899 Other long term (current) drug therapy; Z79.82 Long term (current) use of aspirin; Z90.49 Acquired absence of other specified parts of digestive tract; Z86.16 Personal history of COVID-19; Z99.89 Dependence on other enabling machines and devices; Z68.38 Body mass index [BMI] 38.0-38.9, adult; Z83.3 Family history of diabetes mellitus; Z82.49 Family history of ischemic heart disease and other diseases of the circulatory system
CPT/HCPCS: 80053; 80061; 85027; 85610; 85730; 87081; 93458; C1760; C1894; 36415

== ENCOUNTER → 2020-12-16 | Day surgery (SDC) | payer BC ==
[~2020-12-16] VITALS: Ht 160 cm; Wt 84.0 kg
[~2020-12-16] MED LIST changes: -HEParin (CATH LAB) 2,000 ML IV ONE; -MIDAZOLAM 5 MG/5 ML (VERSED) VIAL ONE; -NS IV 1000 ML 1,000 ML IV SCH; -PATIENT MAY USE OWN MEDS, ALL PO SCH; -fentaNYL INJ 100 MCG/2 ML AMP ONE
[2020-12-16 11:07] VITALS: BP 137/78
--- NOTE | 2020-12-16 12:58 | OPERATIVE REPORT ---
DATE OF SERVICE: 12/16/2020 INDICATIONS FOR PROCEDURE: The patient is a 54-year-old gentleman, who has palpitations that are quite bothersome to him, but they occur infrequently. Accordingly, implantable loop recorder implantation was carried out after having obtained an informed consent. DESCRIPTION OF PROCEDURE: [facility] The left prepectoral area was prepared and draped in the usual sterile fashion. Lidocaine 1% was used for local anesthesia. The tools provided with the [employer] LINQ2 device was used to make a subcutaneous pocket anterior to the fourth intercostal space in which the device was placed and the skin edges were closed using Dermabond and Steri-Strips. He tolerated the procedure well. The serial number of the device is [id number]. Job ID: [id number] DocumentID: [id number] Dictated Date: 12/16/2020 11:42:55 Paper Cutting Machine Operator Date: 12/16/2020 12:56:18 Dictated By: BIANCA KOWALSKI MD, MA, FACP, FACC,
== END ==
LOC: CATH 12:00
PROVIDERS: ATTEND Internal Medicine Cardiovascular Disease
DX: R07.89 Other chest pain (principal); R00.2 Palpitations; I11.9 Hypertensive heart disease without heart failure; K21.9 Gastro-esophageal reflux disease without esophagitis; D64.9 Anemia, unspecified; E66.9 Obesity, unspecified; G47.33 Obstructive sleep apnea (adult) (pediatric); Z79.82 Long term (current) use of aspirin; Z79.899 Other long term (current) drug therapy; Z90.49 Acquired absence of other specified parts of digestive tract; Z99.89 Dependence on other enabling machines and devices; Z68.36 Body mass index [BMI] 36.0-36.9, adult; Z83.3 Family history of diabetes mellitus; Z82.49 Family history of ischemic heart disease and other diseases of the circulatory system
CPT/HCPCS: 33285; C1764